=== PATIENT | female | born 1965 | race Caucasian/White ===

== ENCOUNTER 2016-09-26 13:10 | Emergency (ER) | payer MEDICAID ==
[~2016-09-26] VITALS: Ht 175.3 cm; Wt 69.4 kg
[~2016-09-26 13:10] MED LIST: NONE PER PT
[2016-09-26 13:11] VITALS: BP 142/98
== END 2016-09-26 15:10 | disposition left against medical advice (07) ==
LOC: ED 14:20
DX: R10.2 Pelvic and perineal pain (principal)

== ENCOUNTER 2017-04-29 09:46 | Inpatient (IN) | payer MEDICAID ==
[~2017-04-29] VITALS: Ht 175.3 cm; Wt 68.6 kg
[2017-04-29 10:43] LABS: MEAN CORPUSCULAR HEMOGLOBIN 23.8 pg (27.0-34.8); MEAN CORPUSCULAR HGB CONC 31.6 g/dL (32.4-35.8); MEAN CORPUSCULAR VOLUME 75.6 fL (80-100); MEAN PLATELET VOLUME 8.7 fL (7.4-10.4); PLATELET COUNT 432 x10^3/uL (130-400); RED BLOOD COUNT 4.48 x10^6/uL (3.82-5.3); RED CELL DISTRIBUTION WIDTH 22.4 % (9.6-15.2)
[2017-04-29 10:52] LABS: ALBUMIN 3.1 g/dL (3.4-5.0); ANION GAP 5 mmol/L (5-15); CHLORIDE 108 mmol/L (98-107)
[2017-04-29 10:54] LABS: CALCIUM 8.2 mg/dL (8.5-10.1); CREATININE 0.85 mg/dL (0.55-1.02)
[2017-04-29 11:00] LABS: BASOPHILS # (AUTO) 0.11 x10^3/uL (0-0.1); BASOPHILS % (AUTO) 1 % (0-1); EOSINOPHILS # (AUTO) 0.18 x10^3/uL (0-0.4); EOSINOPHILS % (AUTO) 1 % (1-7); LYMPHOCYTES # (AUTO) 2.06 x10^3/uL (1-3.4); LYMPHOCYTES % (AUTO) 16 % (22-44); MD SCAN; MONOCYTES # (AUTO) 0.97 x10^3/uL (0.2-0.8); MONOCYTES % (AUTO) 8 % (2-9); NEUTROPHILS # (AUTO) 9.64 x10^3/uL (1.8-6.8); NEUTROPHILS % (AUTO) 74 % (42-75)
[2017-04-29] MEDS ORDERED: DILTIAZEM 125 MG in SODIUM CHLORIDE 0.9% 100 ML IV SCH ×2 (11:47→22:00)
[2017-04-29] MEDS ORDERED: DILTIAZEM 5 MG/ML, 5ML ONE (11:51)
[2017-04-29] MEDS ORDERED: SODIUM CHLORIDE 0.9%, 500ML IVBOLUS ONE (12:00)
[2017-04-29] MEDS ORDERED: DILTIAZEM 5 MG/ML, 5ML IVPush ONE (12:00)
[2017-04-29] MEDS ORDERED: ENOXAPARIN 80 MG/0.8 ML SQ ONE (13:00)
[2017-04-29] MEDS ORDERED: CEFTRIAXONE PMX 1GM/50ML 50 ML IVPB ONE (13:00)
[2017-04-29] MEDS ORDERED: CEFTRIAXONE PMX 1GM/50ML 50 ML ONE (13:21)
[2017-04-29] MEDS ORDERED: ENOXAPARIN 80 MG/0.8 ML ONE (13:22)
[2017-04-29 14:04] VITALS: BP 149/96
[2017-04-29] MEDS ORDERED: FLU VACC QS2017-18 (36MOS+) UP/PF 0.5 ML IM-VACC ONE (15:00)
[2017-04-29] MEDS ORDERED: ACETAMINOPHEN 325 MG TABLET PO PRN (15:00)
[2017-04-29] MEDS ORDERED: FUROSEMIDE 20 MG/2 ML IV ONE (15:00)
[2017-04-29 16:08] LABS: AMPHETAMINE SCREEN, URINE Negative (Negative); BARBITURATE SCREEN, URINE Negative (Negative); BENZODIAZEPINE SCREEN, URINE Negative (Negative); CANNABINOID SCREEN, URINE Negative (Negative); COCAINE SCREEN, URINE Negative (Negative); METHADONE SCREEN, URINE Negative (Negative); OPIATE SCREEN, URINE Negative (Negative)
[2017-04-29 16:10] LABS: MICROSCOPIC AUTO
[2017-04-29 16:23] LABS: CULTURE INDICATED? YES
[2017-04-29] MEDS: GUAIFENESIN/DM 200-20MG, 10ML UDC PO PRN (18:37)
[2017-04-29 19:10] VITALS: BP 138/92
[2017-04-29] MEDS: DIPHENHYDRAMINE 25 MG CAPSULE PO PRN (20:09)
[2017-04-29 21:09] LABS: TROPONIN I < 0.015 ng/mL (0.000-0.045)
[2017-04-30] MEDS: GUAIFENESIN/DM 200-20MG, 10ML UDC PO PRN (00:57)
[2017-04-30 01:31] VITALS: BP 155/95
[2017-04-30 02:58] LABS: TROPONIN I < 0.015 ng/mL (0.000-0.045)
[2017-04-30] MEDS ORDERED: ASPIRIN 325 MG TABLET EC PO SCH (06:00)
[2017-04-30 06:57] VITALS: BP 131/78
[2017-04-30] MEDS: CEFTRIAXONE PMX 2GM/50ML 50 ML IV SCH (12:54)
[2017-04-30 13:26] VITALS: BP 118/59
[2017-04-30] MEDS ORDERED: DIGOXIN 0.25 MG/ML, 2ML IVPush ONE (18:30)
[2017-04-30 19:06] VITALS: BP 148/94
[2017-04-30] MEDS ORDERED: BENZONATATE 100 MG CAPSULE ONE (19:59)
[2017-04-30] MEDS: FUROSEMIDE 40 MG/4 ML IV SCH (20:02)
[2017-04-30] MEDS: DIPHENHYDRAMINE 25 MG CAPSULE PO PRN (20:02)
[2017-04-30] MEDS: BENZONATATE 100 MG CAPSULE PO SCH (20:02)
[2017-04-30] MEDS ORDERED: DILTIAZEM 125 MG in SODIUM CHLORIDE 0.9% 100 ML IV SCH (22:00)
[2017-05-01] MEDS: DIGOXIN 0.25 MG/ML, 2ML IVPush SCH ×2 (00:12→06:00)
[2017-05-01 00:14] VITALS: BP 147/89
[2017-05-01] MEDS: FUROSEMIDE 40 MG/4 ML IV SCH ×3 (05:00→22:25)
[2017-05-01] MEDS ORDERED: CARVEDILOL 3.125 MG TABLET PO SCH (06:00)
[2017-05-01 07:20] VITALS: BP 100/63
[2017-05-01 08:03] LABS: ANION GAP 9 mmol/L (5-15); CALCIUM 8.6 mg/dL (8.5-10.1); CHLORIDE 99 mmol/L (98-107); CREATININE 1.03 mg/dL (0.55-1.02)
[2017-05-01] MEDS ORDERED: MAGNESIUM SULFATE PMX 2GM/50ML 50 ML IV ONE (09:00)
[2017-05-01] MEDS: LISINOPRIL 5 MG TABLET PO SCH (09:33)
[2017-05-01] MEDS: SPIRONOLACTONE 25 MG TABLET PO SCH (09:33)
[2017-05-01] MEDS: BENZONATATE 100 MG CAPSULE PO SCH ×3 (09:34→22:25)
[2017-05-01 09:46] LABS: % IRON SATURATION 6 % (20-55); IRON LEVEL 32 mcg/dL (50-170); TOTAL IRON BINDING CAPACITY 508 mcg/dL (250-450)
[2017-05-01] MEDS ORDERED: LIDOCAINE 2%, 20ML ONE (11:34)
[2017-05-01] MEDS ORDERED: MIDAZOLAM 1 MG/ML, 2ML ONE (11:34)
[2017-05-01] MEDS ORDERED: FENTANYL PF 100 MCG/2ML ONE (11:34)
[2017-05-01] MEDS: CEFTRIAXONE PMX 2GM/50ML 50 ML IV SCH (13:09)
[2017-05-01 13:50] VITALS: BP 100/63
[2017-05-01] MEDS: CARVEDILOL 6.25 MG TABLET PO SCH (16:51)
[2017-05-01 18:35] VITALS: BP 104/67
[2017-05-02 01:54] VITALS: BP 109/67
[2017-05-02] MEDS: GUAIFENESIN/DM 200-20MG, 10ML UDC PO PRN (05:32)
[2017-05-02] MEDS: CARVEDILOL 6.25 MG TABLET PO SCH (05:32)
[2017-05-02 05:41] LABS: MEAN CORPUSCULAR HEMOGLOBIN 23.1 pg (27.0-34.8); MEAN CORPUSCULAR HGB CONC 31.2 g/dL (32.4-35.8); MEAN CORPUSCULAR VOLUME 74.1 fL (80-100); MEAN PLATELET VOLUME 8.9 fL (7.4-10.4); PLATELET COUNT 393 x10^3/uL (130-400); RED BLOOD COUNT 5.31 x10^6/uL (3.82-5.3)
[2017-05-02 05:47] LABS: ANION GAP 10 mmol/L (5-15); CALCIUM 8.5 mg/dL (8.5-10.1); CHLORIDE 96 mmol/L (98-107); CREATININE 1.16 mg/dL (0.55-1.02)
[2017-05-02] MEDS ORDERED: ASPIRIN 81 MG TABLET EC PO SCH (06:00)
[2017-05-02 06:21] LABS: BASOPHILS # (AUTO) 0.24 x10^3/uL (0-0.1); BASOPHILS % (AUTO) 2 % (0-1); EOSINOPHILS % (AUTO) 1 % (1-7); LYMPHOCYTES # (AUTO) 1.68 x10^3/uL (1-3.4); LYMPHOCYTES % (AUTO) 12 % (22-44); MD SCAN; MONOCYTES # (AUTO) 1.64 x10^3/uL (0.2-0.8); MONOCYTES % (AUTO) 12 % (2-9); NEUTROPHILS # (AUTO) 10.56 x10^3/uL (1.8-6.8); NEUTROPHILS % (AUTO) 74 % (42-75)
[2017-05-02 07:40] VITALS: BP 101/60
[2017-05-02] MEDS: FUROSEMIDE 40 MG/4 ML IV SCH (07:56)
[2017-05-02] MEDS: SPIRONOLACTONE 25 MG TABLET PO SCH (07:57)
[2017-05-02] MEDS: LISINOPRIL 5 MG TABLET PO SCH (07:57)
[2017-05-02] MEDS: BENZONATATE 100 MG CAPSULE PO SCH (07:57)
[2017-05-02] MEDS ORDERED: DIGOXIN 0.25 MG TABLET PO SCH (09:00)
[2017-05-02] MEDS ORDERED: POTASSIUM CHLORIDE 10 MEQ TABLET.ER ONE (09:11)
[2017-05-02] MEDS ORDERED: POTASSIUM CHLORIDE 10 MEQ TABLET.ER PO SCH (09:30)
[2017-05-02] MEDS ORDERED: IRON SUCROSE COMPLEX 100MG/5ML IV ONE (10:30)
[2017-05-02] MEDS ORDERED: MULTIVITAMINS WITH IRON TABLET PO SCH (10:30)
[2017-05-02] MEDS ORDERED: LISI5TAB7 PO (12:31)
[2017-05-02] MEDS ORDERED: POTA10TA5 PO (12:31)
[2017-05-02] MEDS ORDERED: CARV6.2512 PO (12:31)
[2017-05-02] MEDS ORDERED: SPIR25TA PO (12:31)
[2017-05-02] MEDS ORDERED: ASPI-621 PO (12:31)
[2017-05-02] MEDS ORDERED: FURO40TA6 PO (12:31)
[2017-05-02] MEDS: CEFTRIAXONE PMX 2GM/50ML 50 ML IV SCH (13:00)
[2017-05-02] MEDS ORDERED: PNEUMOCOCCAL 23 VACCINE IM-VACC ONE (13:30)
[2017-05-03] MEDS ORDERED: FUROSEMIDE 40 MG TABLET PO SCH (09:00)
== END 2017-05-02 14:14 | disposition home or self-care (01) | DRG 286 ==
LOC: ED 12:40 → EDIP 12:41 → 5SO 13:51 → DCLOUNGE 05-02 14:06
PROVIDERS: ADMIT Hospitalist; ATTEND Hospitalist
PROC: 4A023N8 Measurement of Cardiac Sampling and Pressure, Bilateral, Percutaneous Approach (ICD-10-PCS; principal; 2017-05-01)
PROC: B2111ZZ Fluoroscopy of Multiple Coronary Arteries using Low Osmolar Contrast (ICD-10-PCS; 2017-05-01)
PROC: B2151ZZ Fluoroscopy of Left Heart using Low Osmolar Contrast (ICD-10-PCS; 2017-05-01)
DX: I48.91 Unspecified atrial fibrillation (principal); I50.21 Acute systolic (congestive) heart failure; D68.59 Other primary thrombophilia; I42.9 Cardiomyopathy, unspecified; I08.1 Rheumatic disorders of both mitral and tricuspid valves; J32.0 Chronic maxillary sinusitis; N39.0 Urinary tract infection, site not specified; D64.9 Anemia, unspecified; F15.90 Other stimulant use, unspecified, uncomplicated; I25.2 Old myocardial infarction; Z87.891 Personal history of nicotine dependence; Z23 Encounter for immunization
CPT/HCPCS: 36415; 70450; 71046; 80048; 80307; 81001; 82040; 83540; 83550; 83605; 83735; 83880; 84145; 84443; 84484; 85025; 87040; 87086; 90686; 90732; 93005; 93306; 93460; 96361; 96365; 96372; 96375; 99156; C1760; C1769; C1894; J0696; J1650; J1756; J1940; J2250; J3010; J3490; J1160; J3475; J7040; Q0163; Q9967

== ENCOUNTER 2017-07-16 21:17 | Emergency (ER) | payer MEDICAID ==
[~2017-07-16] VITALS: Ht 175.3 cm; Wt 68.5 kg
[~2017-07-16 21:17] MED LIST changes: +ASPI-621 PO; +CARV6.2512 PO; +FURO40TA6 PO; +LISI5TAB7 PO; +POTA10TA5 PO; +SPIR25TA PO
[2017-07-16] MEDS ORDERED: SODIUM CHLORIDE FLUSH 10ML SYR IVF ONE (22:30)
[2017-07-16] MEDS ORDERED: ASPIRIN 81 MG TABLET CHEW PO ONE (22:30)
[2017-07-16] MEDS ORDERED: NITROGLYCERIN SINGLE TAB 0.4 MG SL PRN (22:30)
[2017-07-16 22:34] LABS: BASOPHILS # (AUTO) 0.08 x10^3/uL (0-0.1); BASOPHILS % (AUTO) 1 % (0-1); EOSINOPHILS # (AUTO) 0.19 x10^3/uL (0-0.4); EOSINOPHILS % (AUTO) 2 % (1-7); LYMPHOCYTES % (AUTO) 19 % (22-44); MD NO; MEAN CORPUSCULAR HEMOGLOBIN 24.3 pg (27.0-34.8); MEAN CORPUSCULAR HGB CONC 32.2 g/dL (32.4-35.8); MEAN CORPUSCULAR VOLUME 75.4 fL (80-100); MEAN PLATELET VOLUME 7.6 fL (7.4-10.4); MONOCYTES # (AUTO) 0.54 x10^3/uL (0.2-0.8); MONOCYTES % (AUTO) 7 % (2-9); NEUTROPHILS # (AUTO) 5.65 x10^3/uL (1.8-6.8); NEUTROPHILS % (AUTO) 71 % (42-75); PLATELET COUNT 420 x10^3/uL (130-400); RED BLOOD COUNT 4.08 x10^6/uL (3.82-5.3); RED CELL DISTRIBUTION WIDTH 21.5 % (9.6-15.2)
[2017-07-16 22:47] LABS: ALBUMIN 3.4 g/dL (3.4-5.0); ANION GAP 11 mmol/L (5-15); CALCIUM 8.3 mg/dL (8.5-10.1); CHLORIDE 101 mmol/L (98-107); CREATININE 1.57 mg/dL (0.55-1.02)
[2017-07-16 22:51] LABS: TROPONIN I < 0.015 ng/mL (0.000-0.045)
[2017-07-16] MEDS ORDERED: ASPIRIN 81 MG TABLET CHEW ONE (23:34)
[2017-07-17 00:32] VITALS: BP 133/59
== END 2017-07-17 00:34 | disposition home or self-care (01) ==
LOC: ED 23:59
DX: R07.2 Precordial pain (principal); R25.2 Cramp and spasm
CPT/HCPCS: 36415; 71045; 80048; 82040; 84484; 85025; 93005; 99285

== ENCOUNTER 2018-02-12 23:02 | Emergency (ER) | payer MEDICAID ==
[~2018-02-12] VITALS: Ht 175.3 cm; Wt 72.5 kg
[2018-02-12 23:46] LABS: BASOPHILS # (AUTO) 0.07 x10^3/uL (0-0.1); BASOPHILS % (AUTO) 1 % (0-1); EOSINOPHILS # (AUTO) 0.17 x10^3/uL (0-0.4); EOSINOPHILS % (AUTO) 2 % (1-7); LYMPHOCYTES # (AUTO) 1.23 x10^3/uL (1-3.4); LYMPHOCYTES % (AUTO) 13 % (22-44); MD NO; MEAN CORPUSCULAR HEMOGLOBIN 25.5 pg (27.0-34.8); MEAN CORPUSCULAR HGB CONC 32.2 g/dL (32.4-35.8); MEAN CORPUSCULAR VOLUME 79.1 fL (80-100); MEAN PLATELET VOLUME 8.7 fL (7.4-10.4); MONOCYTES # (AUTO) 0.89 x10^3/uL (0.2-0.8); MONOCYTES % (AUTO) 9 % (2-9); NEUTROPHILS # (AUTO) 7.33 x10^3/uL (1.8-6.8); NEUTROPHILS % (AUTO) 76 % (42-75); PLATELET COUNT 274 x10^3/uL (130-400); RED BLOOD COUNT 3.98 x10^6/uL (3.82-5.3); RED CELL DISTRIBUTION WIDTH 19.6 % (9.6-15.2)
[2018-02-12 23:51] LABS: ALBUMIN 3.7 g/dL (3.4-5.0); ANION GAP 10 mmol/L (5-15); CALCIUM 8.4 mg/dL (8.5-10.1); CHLORIDE 109 mmol/L (98-107); CREATININE 0.96 mg/dL (0.55-1.02)
[2018-02-12 23:54] LABS: TROPONIN I < 0.015 ng/mL (0.000-0.045)
[2018-02-13 00:19] VITALS: BP 123/67
== END 2018-02-13 00:34 | disposition home or self-care (01) ==
LOC: ED 23:44
DX: R07.89 Other chest pain (principal); F15.10 Other stimulant abuse, uncomplicated; F17.200 Nicotine dependence, unspecified, uncomplicated; I48.91 Unspecified atrial fibrillation; I50.9 Heart failure, unspecified
CPT/HCPCS: 36415; 71045; 80048; 82040; 84484; 85025; 93005; 99285

== ENCOUNTER → 2018-08-18 | Outpatient (CLI) | payer MEDICAID ==
[~2018-08-18] MED LIST changes: -ASPI-621 PO; +ASPI81TA45 PO
== END | disposition home or self-care (01) ==
LOC: CVU 15:21
PROVIDERS: ATTEND Nurse Practitioner Family
DX: I08.1 Rheumatic disorders of both mitral and tricuspid valves (principal); I42.9 Cardiomyopathy, unspecified; F10.10 Alcohol abuse, uncomplicated
CPT/HCPCS: 93306

== ENCOUNTER 2018-11-24 11:56 | Emergency (ER) | payer MEDICAID ==
[~2018-11-24] VITALS: Ht 175.3 cm; Wt 76.0 kg
[2018-11-24 15:16] VITALS: BP 146/77
== END 2018-11-24 15:36 | disposition home or self-care (01) ==
LOC: ED 15:03
DX: S06.0X1A Concussion with loss of consciousness of 30 minutes or less, initial encounter (principal); I48.91 Unspecified atrial fibrillation; N92.4 Excessive bleeding in the premenopausal period; Y04.8XXA Assault by other bodily force, initial encounter; Y93.89 Activity, other specified; Y92.410 Unspecified street and highway as the place of occurrence of the external cause; Y99.8 Other external cause status
CPT/HCPCS: 36415; 70450; 70486; 72125; 76830; 80053; 81001; 84703; 85025; 85610; 85730; 99284

== ENCOUNTER 2019-04-20 15:34 | Emergency (ER) | payer MEDICAID ==
[~2019-04-20] VITALS: Ht 175.3 cm; Wt 75.0 kg
[2019-04-20 15:37] VITALS: BP 137/65
== END 2019-04-20 16:29 | disposition home or self-care (01) ==
LOC: ED 16:20
DX: K62.5 Hemorrhage of anus and rectum (principal); K60.0 Acute anal fissure; I25.2 Old myocardial infarction; I48.91 Unspecified atrial fibrillation; I50.9 Heart failure, unspecified
CPT/HCPCS: 99283

== ENCOUNTER 2019-06-26 04:05 | Emergency (ER) | payer MEDICAID ==
[~2019-06-26] VITALS: Ht 175.3 cm; Wt 73.0 kg
[2019-06-26] MEDS ORDERED: POTA99TA24 PO (04:29)
--- NOTE | 2019-06-26 04:29 | NUR ---
pt resting on gurney, monitors applied, siderail sup x2, call light within reach. awaiting lab and xray results
[2019-06-26 05:12] LABS: BASOPHILS # (AUTO) 0.05 x10^3/uL (0-0.1); BASOPHILS % (AUTO) 0 % (0-1); EOSINOPHILS # (AUTO) 0.18 x10^3/uL (0-0.4); EOSINOPHILS % (AUTO) 1 % (1-7); LYMPHOCYTES # (AUTO) 1.02 x10^3/uL (1-3.4); LYMPHOCYTES % (AUTO) 6 % (22-44); MD NO; MEAN CORPUSCULAR HEMOGLOBIN 25.5 pg (27.0-34.8); MEAN CORPUSCULAR HGB CONC 31.7 g/dL (32.4-35.8); MEAN CORPUSCULAR VOLUME 80.5 fL (80-100); MEAN PLATELET VOLUME 8.1 fL (7.4-10.4); MONOCYTES # (AUTO) 0.62 x10^3/uL (0.2-0.8); MONOCYTES % (AUTO) 4 % (2-9); NEUTROPHILS # (AUTO) 15.11 x10^3/uL (1.8-6.8); NEUTROPHILS % (AUTO) 89 % (42-75); PLATELET COUNT 388 x10^3/uL (130-400); RED BLOOD COUNT 4.48 x10^6/uL (3.82-5.3); RED CELL DISTRIBUTION WIDTH 21.1 % (9.6-15.2)
[2019-06-26 05:17] LABS: ALANINE AMINOTRANSFERASE 20 U/L (12-78); ALBUMIN 3.1 g/dL (3.4-5.0); ANION GAP 10 mmol/L (5-15); CALCIUM 8.3 mg/dL (8.5-10.1); CHLORIDE 108 mmol/L (98-107); CREATININE 1.06 mg/dL (0.55-1.02)
--- NOTE | 2019-06-26 05:20 | NUR ---
PT UP TO RR WITH STEADY GAIT
[2019-06-26 05:21] LABS: ALKALINE PHOSPHATASE 115 U/L (45-117); BILIRUBIN,TOTAL 0.4 mg/dL (0.2-1.0); TOTAL PROTEIN 7.7 g/dL (6.4-8.2); TROPONIN I < 0.015 ng/mL (0.000-0.045)
[2019-06-26] MEDS ORDERED: SODIUM CHLORIDE FLUSH 10ML SYR IVF ONE (06:00)
--- NOTE | 2019-06-26 06:21 | NUR ---
pt to ct
--- NOTE | 2019-06-26 06:41 | NUR ---
PT RESTING ON GURNEY, MONITORS REAPPLIED, CALL LIGHT WITHIN REACH. AWAITING CTA RESULT
[2019-06-26] MEDS ORDERED: ACETAMINOPHEN 500 MG TABLET ONE (06:54)
--- NOTE | 2019-06-26 06:56 | NUR ---
pt medicated per mar
[2019-06-26] MEDS ORDERED: OMNIPAQUE 350 MG/ML, 100ML BOTTLE ONE (07:00)
[2019-06-26] MEDS ORDERED: ACETAMINOPHEN 500 MG TABLET PO ONE (07:00)
--- NOTE | 2019-06-26 07:00 | NUR ---
RECEIVED REPORT FROM TIMOTHY LEE. PT IN BED RESTING, NO SIGNS OF DISTRESS.
[2019-06-26 07:34] LABS: TROPONIN I < 0.015 ng/mL (0.000-0.045)
[2019-06-26 07:54] VITALS: BP 114/89
--- NOTE | 2019-06-26 07:55 | NUR ---
PT IN BED, NO SIGNS OF DISTRESS, RESPIRATIONS EVEN AND UNLABORED, CALL LIGHT WITHIN REACH.
== END 2019-06-26 08:13 | disposition home or self-care (01) ==
LOC: ED 07:21
DX: R07.89 Other chest pain (principal); F10.10 Alcohol abuse, uncomplicated; Y90.0 Blood alcohol level of less than 20 mg/100 ml; F15.10 Other stimulant abuse, uncomplicated; I50.9 Heart failure, unspecified; I48.91 Unspecified atrial fibrillation; I25.2 Old myocardial infarction
CPT/HCPCS: 36415; 71045; 71275; 80053; 83880; 84484; 85025; 93005; 99285; Q9967

== ENCOUNTER 2019-06-29 16:20 | Inpatient (IN) | payer MEDICAID ==
[~2019-06-29] VITALS: Ht 175.3 cm; Wt 82.4 kg
[~2019-06-29 16:20] MED LIST changes: +POTA99TA24 PO
[2019-06-29] MEDS ORDERED: SODIUM CHLORIDE FLUSH 10ML SYR IVF ONE (17:00)
[2019-06-29] MEDS ORDERED: ACETAMINOPHEN 500 MG TABLET PO ONE (17:00)
[2019-06-29] MEDS ORDERED: SODIUM CHLORIDE 0.9% 1,000ML IVBOLUS ONE (17:00)
[2019-06-29 17:22] LABS: ALANINE AMINOTRANSFERASE 32 U/L (12-78); ALBUMIN 2.2 g/dL (3.4-5.0); ANION GAP 14 mmol/L (5-15); CALCIUM 7.7 mg/dL (8.5-10.1); CHLORIDE 97 mmol/L (98-107); CREATININE 2.02 mg/dL (0.55-1.02)
[2019-06-29 17:25] LABS: ALKALINE PHOSPHATASE 78 U/L (45-117); BILIRUBIN,TOTAL 0.2 mg/dL (0.2-1.0)
[2019-06-29] MEDS: NS + 40MEQ KCL 1,000 ML IV SCH ×2 (17:31→22:26)
[2019-06-29] MEDS ORDERED: AZITHROMYCIN 500 MG in SODIUM CHLORIDE 0.9% 250 ML IV ONE (17:32)
[2019-06-29] MEDS ORDERED: POTASSIUM CHLORIDE 20 MEQ TAB.ER.PRT ONE (17:43)
[2019-06-29] MEDS ORDERED: NS + 40MEQ KCL 1,000 ML IV ONE (17:43)
[2019-06-29] MEDS ORDERED: POTASSIUM CHLORIDE 20 MEQ TAB.ER.PRT PO ONE (18:00)
[2019-06-29 18:05] LABS: MEAN CORPUSCULAR HEMOGLOBIN 25.9 pg (27.0-34.8); MEAN CORPUSCULAR HGB CONC 33.2 g/dL (32.4-35.8); MEAN CORPUSCULAR VOLUME 77.9 fL (80-100); PLATELET COUNT 155 x10^3/uL (130-400); RED BLOOD COUNT 3.83 x10^6/uL (3.82-5.3); RED CELL DISTRIBUTION WIDTH 20.3 % (9.6-15.2)
[2019-06-29] MEDS ORDERED: POTA20TA14 PO (18:09)
[2019-06-29] MEDS ORDERED: LISI5TAB7 PO (18:09)
[2019-06-29] MEDS ORDERED: NALT50TA PO (18:09)
[2019-06-29] MEDS ORDERED: FERR324T5 PO (18:09)
[2019-06-29] MEDS ORDERED: SPIR25TA5 PO (18:09)
[2019-06-29 18:25] LABS: MD YES
[2019-06-29 18:40] LABS: BAND#(MANUAL) 0.95 x10^3/uL; BANDS%(MANUAL) 10 % (0-7); LYMPH#(MANUAL) 0.19 x10^3/uL (1-3.4); LYMPHS% (MANUAL) 2 % (22-44); MONOS#(MANUAL) 0.38 x10^3/uL (0.3-2.7); MONOS% (MANUAL) 4 % (2-9); SEG#(MANUAL) 7.98 x10^3/uL (1.8-6.8); SEGS% (MANUAL) 84 % (42-75)
[2019-06-29 18:42] LABS: <PLATELET ESTIMATE> ADEQUATE; <PLT MORPHOLOGY> NORMAL PLT MORPH; HYPOCHROMIA 1+; MICROCYTOSIS 1+
--- NOTE | 2019-06-29 19:09 | NUR ---
Assumed care of pt. Pt alert and resting on gurney. Awaiting admit.
[2019-06-29] MEDS ORDERED: ONDANSETRON ODT 4 MG PO PRN (19:30)
--- NOTE | 2019-06-29 19:38 | NUR ---
VSS. Pt on room air. Pt aware of need for urine sample. Pt reports pain to her left side/ribs and requested pain medicine. MD updated and order received.
[2019-06-29] MEDS ORDERED: CEFTRIAXONE PMX 1GM/50ML 50 ML ONE (19:54)
[2019-06-29] MEDS ORDERED: HYDROmorphone 2 MG/ML, 1ML ONE (19:55)
[2019-06-29] MEDS ORDERED: HYDROmorphone 2 MG/ML, 1ML IM PRN (20:00)
[2019-06-29] MEDS: CEFTRIAXONE PMX 1GM/50ML 50 ML IV SCH (20:02)
--- NOTE | 2019-06-29 20:15 | NUR ---
Rocephin started. Dilaudid given. Pt remains on full monitors with call light within reach.
--- NOTE | 2019-06-29 20:38 | NUR ---
Report given to TIMOTHY Jain
--- NOTE | 2019-06-29 20:56 | NUR ---
At time of admit, pt alert, oriented and in NAD.
[2019-06-29 21:41] VITALS: BP 127/80
[2019-06-29 21:51] LABS: ANION GAP 11 mmol/L (5-15); CALCIUM 7.8 mg/dL (8.5-10.1); CHLORIDE 102 mmol/L (98-107)
[2019-06-30 00:53] VITALS: BP 127/75
[2019-06-30] MEDS: ACETAMINOPHEN 325 MG TABLET PO PRN ×3 (02:52→17:54)
[2019-06-30 03:19] VITALS: BP 127/74
[2019-06-30 03:40] LABS: MICROSCOPIC AUTO
[2019-06-30 03:41] LABS: CULTURE INDICATED? YES
[2019-06-30] MEDS: NS + 40MEQ KCL 1,000 ML IV SCH (04:59)
[2019-06-30 06:10] LABS: MEAN CORPUSCULAR HEMOGLOBIN 25.6 pg (27.0-34.8); MEAN CORPUSCULAR VOLUME 80.1 fL (80-100); MEAN PLATELET VOLUME 9.9 fL (7.4-10.4); PLATELET COUNT 140 x10^3/uL (130-400); RED BLOOD COUNT 3.76 x10^6/uL (3.82-5.3); RED CELL DISTRIBUTION WIDTH 20.9 % (9.6-15.2)
[2019-06-30 06:17] LABS: ANION GAP 10 mmol/L (5-15); CALCIUM 7.8 mg/dL (8.5-10.1); CHLORIDE 105 mmol/L (98-107); CREATININE 1.69 mg/dL (0.55-1.02)
[2019-06-30 06:30] LABS: BASOPHILS % (AUTO) 0 % (0-1); EOSINOPHILS # (AUTO) 0.01 x10^3/uL (0-0.4); EOSINOPHILS % (AUTO) 0 % (1-7); LYMPHOCYTES % (AUTO) 6 % (22-44); MD SCAN; MONOCYTES # (AUTO) 0.46 x10^3/uL (0.2-0.8); MONOCYTES % (AUTO) 5 % (2-9); NEUTROPHILS # (AUTO) 8.15 x10^3/uL (1.8-6.8); NEUTROPHILS % (AUTO) 89 % (42-75)
[2019-06-30] MEDS ORDERED: VANCOMYCIN PER PHARMACY MC PRN (07:30)
[2019-06-30] MEDS: LISINOPRIL 5 MG TABLET PO SCH (07:53)
[2019-06-30] MEDS: SPIRONOLACTONE 25 MG TABLET PO SCH (07:53)
[2019-06-30] MEDS: CARVEDILOL 6.25 MG TABLET PO SCH ×2 (07:53→17:05)
[2019-06-30] MEDS: FERROUS SULFATE 325 MG TABLET PO SCH ×2 (07:53→17:05)
[2019-06-30] MEDS ORDERED: PHARMACOKINETIC MONITORING MC PRN (08:00)
[2019-06-30] MEDS ORDERED: VANCOMYCIN 1,700 MG in SODIUM CHLORIDE 0.9% 250 ML IV ONE (08:00)
[2019-06-30 08:11] VITALS: BP 134/55
[2019-06-30] MEDS: SENNA/DOCUSATE TABLET PO SCH (08:15)
[2019-06-30] MEDS ORDERED: FUROSEMIDE 40 MG TABLET PO SCH (09:00)
[2019-06-30] MEDS ORDERED: POTASSIUM CHLORIDE 20 MEQ TAB.ER.PRT PO SCH (09:00)
[2019-06-30] MEDS: ALBUTEROL HFA 90 MCG/SPRAY INH SCH ×3 (13:37→22:04)
[2019-06-30 15:03] VITALS: BP 126/53
[2019-06-30] MEDS ORDERED: AZITHROMYCIN 500 MG in SODIUM CHLORIDE 0.9% 250 ML IV SCH (18:00)
[2019-06-30] MEDS ORDERED: VANCOMYCIN 1,400 MG in SODIUM CHLORIDE 0.9% 250 ML IV SCH (20:00)
[2019-06-30] MEDS: CEFTRIAXONE PMX 1GM/50ML 50 ML IV SCH (20:14)
[2019-06-30 20:25] VITALS: BP 89/55
[2019-06-30 22:12] VITALS: BP 98/55
[2019-07-01] MEDS ORDERED: VANCOMYCIN 1,400 MG in SODIUM CHLORIDE 0.9% 250 ML IV SCH (02:00)
[2019-07-01] MEDS: ALBUTEROL HFA 90 MCG/SPRAY INH SCH ×6 (02:21→23:02)
[2019-07-01] MEDS: ACETAMINOPHEN 325 MG TABLET PO PRN ×4 (02:33→20:37)
[2019-07-01 02:35] VITALS: BP 95/58
[2019-07-01] MEDS: CARVEDILOL 6.25 MG TABLET PO SCH ×2 (06:38→17:14)
[2019-07-01 07:18] LABS: ANION GAP 10 mmol/L (5-15); CALCIUM 8.3 mg/dL (8.5-10.1); CHLORIDE 104 mmol/L (98-107); CREATININE 1.36 mg/dL (0.55-1.02)
[2019-07-01 08:00] VITALS: BP 93/56
[2019-07-01] MEDS: FERROUS SULFATE 325 MG TABLET PO SCH ×2 (08:04→17:00)
[2019-07-01] MEDS: SPIRONOLACTONE 25 MG TABLET PO SCH (08:18)
[2019-07-01] MEDS: LISINOPRIL 5 MG TABLET PO SCH (08:18)
[2019-07-01] MEDS: SENNA/DOCUSATE TABLET PO SCH (08:18)
[2019-07-01] MEDS ORDERED: POTASSIUM CHLORIDE 20 MEQ TAB.ER.PRT PO ONE (10:30)
[2019-07-01 13:59] VITALS: BP 106/63
[2019-07-01] MEDS ORDERED: GUAIFENESIN 200 MG TABLET PO PRN (14:30)
[2019-07-01 18:41] VITALS: BP 112/70
[2019-07-01] MEDS: CEFTRIAXONE PMX 2GM/50ML 50 ML IV SCH (20:37)
[2019-07-02 00:14] VITALS: BP 110/69
[2019-07-02] MEDS ORDERED: BENZONATATE 100 MG CAPSULE PO ONE (02:30)
[2019-07-02] MEDS: ALBUTEROL HFA 90 MCG/SPRAY INH SCH ×6 (03:14→23:48)
[2019-07-02 06:08] LABS: CHLORIDE 104 mmol/L (98-107)
[2019-07-02 06:16] LABS: ANION GAP 8 mmol/L (5-15); CALCIUM 8.7 mg/dL (8.5-10.1); CREATININE 1.04 mg/dL (0.55-1.02)
[2019-07-02] MEDS: CARVEDILOL 6.25 MG TABLET PO SCH ×2 (06:23→17:53)
[2019-07-02 06:35] VITALS: BP 129/78
[2019-07-02] MEDS: FERROUS SULFATE 325 MG TABLET PO SCH ×2 (08:42→17:00)
[2019-07-02] MEDS: SPIRONOLACTONE 25 MG TABLET PO SCH (08:42)
[2019-07-02] MEDS: LISINOPRIL 5 MG TABLET PO SCH (08:42)
[2019-07-02] MEDS: SENNA/DOCUSATE TABLET PO SCH (08:42)
[2019-07-02] MEDS: GUAIFENESIN 100 MG/5 ML, 5ML UDC PO PRN ×3 (11:47→23:46)
[2019-07-02] MEDS: HEPARIN 5,000 UNITS/ML, 1ML SQ SCH ×2 (11:48→23:47)
[2019-07-02 12:25] VITALS: BP 115/72
[2019-07-02 17:45] LABS: CLOSTRIDIUM DIFFICILE ANTIGEN NEGATIVE; CLOSTRIDIUM DIFFICILE TOXIN NEGATIVE (Negative)
[2019-07-02] MEDS: BENZONATATE 100 MG CAPSULE PO PRN (17:53)
[2019-07-02 18:36] VITALS: BP 130/74
[2019-07-02] MEDS: CEFTRIAXONE PMX 2GM/50ML 50 ML IV SCH (19:51)
[2019-07-02] MEDS: ACETAMINOPHEN 325 MG TABLET PO PRN (19:51)
[2019-07-03 00:44] VITALS: BP 114/70
[2019-07-03] MEDS: ALBUTEROL HFA 90 MCG/SPRAY INH SCH ×6 (03:04→22:36)
[2019-07-03] MEDS: BENZONATATE 100 MG CAPSULE PO PRN ×3 (03:22→17:03)
[2019-07-03 05:23] LABS: MEAN CORPUSCULAR HEMOGLOBIN 25.6 pg (27.0-34.8); MEAN CORPUSCULAR HGB CONC 31.8 g/dL (32.4-35.8); MEAN CORPUSCULAR VOLUME 80.4 fL (80-100); RED BLOOD COUNT 3.99 x10^6/uL (3.82-5.3); RED CELL DISTRIBUTION WIDTH 20.8 % (9.6-15.2)
[2019-07-03 05:25] LABS: CHLORIDE 103 mmol/L (98-107)
[2019-07-03 05:29] LABS: ANION GAP 8 mmol/L (5-15); CALCIUM 8.2 mg/dL (8.5-10.1); CREATININE 0.97 mg/dL (0.55-1.02)
[2019-07-03] MEDS: CARVEDILOL 6.25 MG TABLET PO SCH ×2 (05:47→17:47)
[2019-07-03] MEDS: GUAIFENESIN 100 MG/5 ML, 5ML UDC PO PRN (05:47)
[2019-07-03 06:08] LABS: MEAN PLATELET VOLUME 8.7 fL (7.4-10.4); PLATELET COUNT 355 x10^3/uL (130-400)
[2019-07-03 06:09] LABS: BASOPHILS # (AUTO) 0.07 x10^3/uL (0-0.1); BASOPHILS % (AUTO) 1 % (0-1); EOSINOPHILS % (AUTO) 1 % (1-7); LYMPHOCYTES # (AUTO) 0.93 x10^3/uL (1-3.4); LYMPHOCYTES % (AUTO) 7 % (22-44); MD SCAN; MONOCYTES # (AUTO) 1.41 x10^3/uL (0.2-0.8); MONOCYTES % (AUTO) 11 % (2-9); NEUTROPHILS # (AUTO) 10.31 x10^3/uL (1.8-6.8); NEUTROPHILS % (AUTO) 80 % (42-75)
[2019-07-03 07:23] VITALS: BP 121/71
[2019-07-03] MEDS: SENNA/DOCUSATE TABLET PO SCH (08:55)
[2019-07-03] MEDS: FERROUS SULFATE 325 MG TABLET PO SCH ×2 (08:55→17:00)
[2019-07-03] MEDS: SPIRONOLACTONE 25 MG TABLET PO SCH (08:55)
[2019-07-03] MEDS: LISINOPRIL 5 MG TABLET PO SCH (08:56)
[2019-07-03] MEDS: HEPARIN 5,000 UNITS/ML, 1ML SQ SCH ×2 (11:06→17:03)
[2019-07-03 15:05] VITALS: BP 145/84
[2019-07-03] MEDS ORDERED: LIDOCAINE-MPF 1%, 5ML ONE (15:35)
[2019-07-03] MEDS ORDERED: OMNIPAQUE 350 MG/ML, 75ML BOTTLE ONE (16:46)
[2019-07-03 17:29] LABS: SYN CELLS COUNTED 570
[2019-07-03 18:34] VITALS: BP 128/78
[2019-07-03] MEDS: CEFTRIAXONE PMX 2GM/50ML 50 ML IV SCH (19:35)
[2019-07-03] MEDS: GUAIFENESIN ER 600 MG TABLET PO SCH (20:07)
[2019-07-03] MEDS: THIAMINE 100MG TABLET PO SCH (20:07)
[2019-07-04 00:25] VITALS: BP 147/76
[2019-07-04] MEDS: HEPARIN 5,000 UNITS/ML, 1ML SQ SCH ×4 (00:43→23:26)
[2019-07-04] MEDS: ALBUTEROL HFA 90 MCG/SPRAY INH SCH ×6 (03:25→23:00)
[2019-07-04 05:25] LABS: BASOPHILS # (AUTO) 0.09 x10^3/uL (0-0.1); BASOPHILS % (AUTO) 1 % (0-1); EOSINOPHILS # (AUTO) 0.14 x10^3/uL (0-0.4); EOSINOPHILS % (AUTO) 1 % (1-7); LYMPHOCYTES # (AUTO) 0.96 x10^3/uL (1-3.4); LYMPHOCYTES % (AUTO) 10 % (22-44); MD NO; MEAN CORPUSCULAR HEMOGLOBIN 25.2 pg (27.0-34.8); MEAN CORPUSCULAR HGB CONC 32.1 g/dL (32.4-35.8); MEAN CORPUSCULAR VOLUME 78.7 fL (80-100); MEAN PLATELET VOLUME 8.5 fL (7.4-10.4); MONOCYTES # (AUTO) 1.03 x10^3/uL (0.2-0.8); MONOCYTES % (AUTO) 10 % (2-9); NEUTROPHILS # (AUTO) 7.62 x10^3/uL (1.8-6.8); NEUTROPHILS % (AUTO) 77 % (42-75); PLATELET COUNT 380 x10^3/uL (130-400); RED BLOOD COUNT 3.78 x10^6/uL (3.82-5.3); RED CELL DISTRIBUTION WIDTH 20.4 % (9.6-15.2)
[2019-07-04 05:31] LABS: ANION GAP 9 mmol/L (5-15); CALCIUM 8.1 mg/dL (8.5-10.1); CHLORIDE 102 mmol/L (98-107); CREATININE 0.96 mg/dL (0.55-1.02)
[2019-07-04] MEDS: CARVEDILOL 6.25 MG TABLET PO SCH ×2 (06:02→17:24)
[2019-07-04 07:11] VITALS: BP 118/74
[2019-07-04] MEDS: BENZONATATE 100 MG CAPSULE PO PRN ×2 (08:54→17:24)
[2019-07-04] MEDS: SPIRONOLACTONE 25 MG TABLET PO SCH (08:54)
[2019-07-04] MEDS: GUAIFENESIN ER 600 MG TABLET PO SCH (08:54)
[2019-07-04] MEDS: SENNA/DOCUSATE TABLET PO SCH (08:54)
[2019-07-04] MEDS: LISINOPRIL 5 MG TABLET PO SCH (08:54)
[2019-07-04] MEDS: FERROUS SULFATE 325 MG TABLET PO SCH ×2 (08:55→16:48)
[2019-07-04] MEDS: THIAMINE 100MG TABLET PO SCH ×2 (08:58→20:03)
[2019-07-04] MEDS ORDERED: LIDOCAINE 1%, 10ML ONE (11:41)
[2019-07-04 12:41] VITALS: BP 112/72
[2019-07-04] MEDS ORDERED: TRAZODONE 50MG TABLET PO ONE (13:00)
[2019-07-04 18:23] VITALS: BP 99/64
[2019-07-04] MEDS: CEFTRIAXONE PMX 2GM/50ML 50 ML IV SCH (20:05)
[2019-07-04] MEDS: TRAZODONE 50MG TABLET PO PRN (21:28)
[2019-07-04] MEDS: GUAIFENESIN 100 MG/5 ML, 5ML UDC PO PRN (21:29)
[2019-07-05 02:20] LABS: HCG UR SG 1.009 (1.003-1.030)
[2019-07-05 02:25] VITALS: BP 112/68
[2019-07-05] MEDS: ALBUTEROL HFA 90 MCG/SPRAY INH SCH ×5 (02:33→20:27)
[2019-07-05 05:30] LABS: MEAN CORPUSCULAR HEMOGLOBIN 25.5 pg (27.0-34.8); MEAN CORPUSCULAR HGB CONC 32.5 g/dL (32.4-35.8); MEAN CORPUSCULAR VOLUME 78.4 fL (80-100); MEAN PLATELET VOLUME 7.8 fL (7.4-10.4); PLATELET COUNT 426 x10^3/uL (130-400); RED CELL DISTRIBUTION WIDTH 20.8 % (9.6-15.2)
[2019-07-05 05:36] LABS: ANION GAP 5 mmol/L (5-15); CALCIUM 7.9 mg/dL (8.5-10.1); CHLORIDE 101 mmol/L (98-107)
[2019-07-05] MEDS: CARVEDILOL 6.25 MG TABLET PO SCH ×2 (05:36→17:58)
[2019-07-05 05:38] LABS: CREATININE 0.86 mg/dL (0.55-1.02)
[2019-07-05 06:27] LABS: BASOPHILS # (AUTO) 0.05 x10^3/uL (0-0.1); BASOPHILS % (AUTO) 1 % (0-1); EOSINOPHILS # (AUTO) 0.17 x10^3/uL (0-0.4); EOSINOPHILS % (AUTO) 2 % (1-7); LYMPHOCYTES # (AUTO) 0.98 x10^3/uL (1-3.4); LYMPHOCYTES % (AUTO) 11 % (22-44); MD SCAN; MONOCYTES # (AUTO) 1.53 x10^3/uL (0.2-0.8); MONOCYTES % (AUTO) 17 % (2-9); NEUTROPHILS # (AUTO) 6.26 x10^3/uL (1.8-6.8); NEUTROPHILS % (AUTO) 70 % (42-75)
[2019-07-05 07:14] VITALS: BP 101/66
[2019-07-05] MEDS ORDERED: BUPIVACAINE/PF-EPI 0.5% 1:200K ONE (07:25)
[2019-07-05] MEDS ORDERED: FENTANYL PF 250 MCG/5ML ONE (07:47)
[2019-07-05] MEDS ORDERED: MIDAZOLAM 1 MG/ML, 2ML ONE (07:47)
[2019-07-05] MEDS: FERROUS SULFATE 325 MG TABLET PO SCH ×2 (08:00→17:23)
[2019-07-05] MEDS ORDERED: EPHEDRINE 50 MG/ML, 1ML ONE (08:13)
[2019-07-05] MEDS ORDERED: ONDANSETRON 2MG/ML, 2ML ONE (08:19)
[2019-07-05] MEDS ORDERED: NEOSTIGMINE 1 MG/ML, 10ML ONE (08:19)
[2019-07-05] MEDS ORDERED: KETOROLAC 30 MG/1 ML ONE (08:19)
[2019-07-05] MEDS ORDERED: ROCURONIUM 10MG/ML,5ML ONE (08:19)
[2019-07-05] MEDS ORDERED: GLYCOPYRROLATE 0.2MG/1ML, 5ML ONE (08:19)
[2019-07-05] MEDS ORDERED: SUCCINYLCHOLINE 20 MG/ML, 10ML ONE (08:19)
[2019-07-05] MEDS ORDERED: LIDOCAINE-MPF 2% ,5ML ONE (08:19)
[2019-07-05] MEDS ORDERED: DEXAMETHASONE 4 MG/ML, 1ML ONE (08:19)
[2019-07-05] MEDS ORDERED: PROPOFOL 10 MG/ML, 20ML ONE (08:19)
[2019-07-05] MEDS ORDERED: BUPIVACAINE/PF-EPI 0.5% 1:200K INFIL ONE (08:28)
[2019-07-05] MEDS ORDERED: MEPERIDINE/PF 25MG/ML,1ML IVPush PRN (08:30)
[2019-07-05] MEDS ORDERED: OXYcodone 5 MG/5 ML ORAL.SOL UDC PO PRN (08:30)
[2019-07-05] MEDS ORDERED: ONDANSETRON 2MG/ML, 2ML IV PRN (08:30)
[2019-07-05] MEDS ORDERED: EPHEDRINE 50 MG/ML, 1ML IVPush PRN (08:30)
[2019-07-05] MEDS ORDERED: HYDROmorphone 2 MG/ML, 1ML IVPush PRN (08:30)
[2019-07-05] MEDS ORDERED: ACETAMINOPHEN 325 MG TABLET PO PRN (08:30)
[2019-07-05] MEDS ORDERED: PROMETHAZINE 25 MG/ML, 1ML IV PRN (08:30)
[2019-07-05] MEDS ORDERED: hydrALAzine 20 MG/ML, 1ML IV PRN (08:30)
[2019-07-05] MEDS ORDERED: LABETALOL 5MG/ML, 20ML IV PRN (08:30)
[2019-07-05] MEDS ORDERED: OXYcodone 5 MG/5 ML ORAL.SOL UDC ONE (08:57)
[2019-07-05] MEDS ORDERED: FENTANYL PF 100 MCG/2ML ONE (08:57)
[2019-07-05] MEDS ORDERED: HYDROmorphone 1 MG/ML, 1ML INJ ONE (08:57)
[2019-07-05] MEDS: THIAMINE 100MG TABLET PO SCH ×2 (09:00→20:28)
[2019-07-05] MEDS: SENNA/DOCUSATE TABLET PO SCH (09:00)
[2019-07-05] MEDS: HEPARIN 5,000 UNITS/ML, 1ML SQ SCH ×2 (09:00→17:23)
[2019-07-05] MEDS: LISINOPRIL 5 MG TABLET PO SCH (09:00)
[2019-07-05] MEDS ORDERED: HYDROmorphone PCA 30 MG/30 ML IV PRN (09:00)
[2019-07-05] MEDS: SPIRONOLACTONE 25 MG TABLET PO SCH (09:00)
[2019-07-05] MEDS: FENTANYL PF 100 MCG/2ML IV PRN ×2 (09:23→09:55)
[2019-07-05 13:31] VITALS: BP 96/50
[2019-07-05] MEDS: AMPICILLIN/SULBACTAM 1,500 MG in SODIUM CHLORIDE 0.9% 50 ML IV SCH ×2 (15:29→20:27)
[2019-07-05] MEDS: POTASSIUM CHLORIDE 20 MEQ TAB.ER.PRT PO SCH (17:23)
[2019-07-05 17:40] VITALS: BP 110/62
[2019-07-05 20:18] VITALS: BP 116/70
[2019-07-05] MEDS: TRAZODONE 50MG TABLET PO PRN (20:28)
[2019-07-05] MEDS ORDERED: GUAIFENESIN 100 MG/5 ML, 10ML UDC ONE (20:33)
[2019-07-05] MEDS: GUAIFENESIN 100 MG/5 ML, 5ML UDC PO SCH (20:33)
[2019-07-06 00:57] VITALS: BP 113/75
[2019-07-06] MEDS: HEPARIN 5,000 UNITS/ML, 1ML SQ SCH ×3 (01:22→18:00)
[2019-07-06] MEDS: ALBUTEROL HFA 90 MCG/SPRAY INH SCH ×7 (01:23→23:00)
[2019-07-06] MEDS: AMPICILLIN/SULBACTAM 1,500 MG in SODIUM CHLORIDE 0.9% 50 ML IV SCH ×4 (02:39→20:29)
[2019-07-06 04:32] VITALS: BP 106/68
[2019-07-06 04:54] LABS: MEAN CORPUSCULAR HEMOGLOBIN 25.7 pg (27.0-34.8); MEAN CORPUSCULAR HGB CONC 32.4 g/dL (32.4-35.8); MEAN CORPUSCULAR VOLUME 79.5 fL (80-100); MEAN PLATELET VOLUME 7.8 fL (7.4-10.4); PLATELET COUNT 475 x10^3/uL (130-400); RED BLOOD COUNT 3.59 x10^6/uL (3.82-5.3); RED CELL DISTRIBUTION WIDTH 21.1 % (9.6-15.2)
[2019-07-06 05:09] LABS: ALBUMIN 1.7 g/dL (3.4-5.0); ANION GAP 7 mmol/L (5-15); CHLORIDE 103 mmol/L (98-107)
[2019-07-06 05:13] LABS: ALANINE AMINOTRANSFERASE 24 U/L (12-78); ALKALINE PHOSPHATASE 103 U/L (45-117); BILIRUBIN,TOTAL 0.3 mg/dL (0.2-1.0); CREATININE 0.84 mg/dL (0.55-1.02); TOTAL PROTEIN 6.9 g/dL (6.4-8.2)
[2019-07-06 05:29] LABS: BASOPHILS # (AUTO) 0.08 x10^3/uL (0-0.1); BASOPHILS % (AUTO) 1 % (0-1); EOSINOPHILS # (AUTO) 0.07 x10^3/uL (0-0.4); EOSINOPHILS % (AUTO) 1 % (1-7); LYMPHOCYTES # (AUTO) 0.86 x10^3/uL (1-3.4); LYMPHOCYTES % (AUTO) 6 % (22-44); MD MORPH REVIEW ONLY; MONOCYTES % (AUTO) 6 % (2-9); NEUTROPHILS # (AUTO) 12.38 x10^3/uL (1.8-6.8); NEUTROPHILS % (AUTO) 87 % (42-75)
[2019-07-06 05:30] LABS: ANISOCYTOSIS 1+; MICROCYTOSIS 1+; POLYCHROMASIA 1+
[2019-07-06 05:31] LABS: <PLATELET ESTIMATE> INCREASED; <PLT MORPHOLOGY> NORMAL PLT MORPH; TEAR DROPS 1+; TOXIC GRAN 1+
[2019-07-06] MEDS: CARVEDILOL 6.25 MG TABLET PO SCH ×2 (05:58→18:00)
[2019-07-06 06:40] VITALS: BP 110/70
[2019-07-06] MEDS: SPIRONOLACTONE 25 MG TABLET PO SCH (09:00)
[2019-07-06] MEDS: GUAIFENESIN 100 MG/5 ML, 5ML UDC PO SCH ×2 (09:07→20:28)
[2019-07-06] MEDS: FERROUS SULFATE 325 MG TABLET PO SCH ×2 (09:08→18:00)
[2019-07-06] MEDS: LISINOPRIL 5 MG TABLET PO SCH (09:08)
[2019-07-06] MEDS: THIAMINE 100MG TABLET PO SCH ×2 (09:08→20:29)
[2019-07-06] MEDS: SENNA/DOCUSATE TABLET PO SCH (09:08)
[2019-07-06] MEDS: POTASSIUM CHLORIDE 20 MEQ TAB.ER.PRT PO SCH ×2 (09:08→18:00)
[2019-07-06 14:25] VITALS: BP 105/68
[2019-07-06 18:01] VITALS: BP 118/48
[2019-07-06 20:21] VITALS: BP 105/69
[2019-07-06] MEDS ORDERED: GUAIFENESIN 100 MG/5 ML, 10ML UDC ONE (20:25)
[2019-07-06] MEDS: TRAZODONE 50MG TABLET PO PRN (20:34)
[2019-07-07] MEDS: BENZONATATE 100 MG CAPSULE PO PRN (01:41)
[2019-07-07] MEDS: HEPARIN 5,000 UNITS/ML, 1ML SQ SCH ×3 (01:41→17:46)
[2019-07-07] MEDS: AMPICILLIN/SULBACTAM 1,500 MG in SODIUM CHLORIDE 0.9% 50 ML IV SCH ×4 (01:59→20:32)
[2019-07-07 02:17] VITALS: BP 104/61
[2019-07-07] MEDS: ALBUTEROL HFA 90 MCG/SPRAY INH SCH ×6 (04:41→23:00)
[2019-07-07] MEDS: CARVEDILOL 6.25 MG TABLET PO SCH ×2 (05:19→17:47)
[2019-07-07 05:49] LABS: BASOPHILS # (AUTO) 0.08 x10^3/uL (0-0.1); BASOPHILS % (AUTO) 1 % (0-1); EOSINOPHILS # (AUTO) 0.11 x10^3/uL (0-0.4); EOSINOPHILS % (AUTO) 1 % (1-7); LYMPHOCYTES # (AUTO) 0.95 x10^3/uL (1-3.4); LYMPHOCYTES % (AUTO) 10 % (22-44); MD NO; MEAN CORPUSCULAR HEMOGLOBIN 25.7 pg (27.0-34.8); MEAN CORPUSCULAR HGB CONC 32.3 g/dL (32.4-35.8); MEAN CORPUSCULAR VOLUME 79.5 fL (80-100); MEAN PLATELET VOLUME 7.9 fL (7.4-10.4); MONOCYTES # (AUTO) 0.61 x10^3/uL (0.2-0.8); MONOCYTES % (AUTO) 6 % (2-9); NEUTROPHILS # (AUTO) 7.77 x10^3/uL (1.8-6.8); NEUTROPHILS % (AUTO) 82 % (42-75); PLATELET COUNT 442 x10^3/uL (130-400); RED BLOOD COUNT 3.36 x10^6/uL (3.82-5.3); RED CELL DISTRIBUTION WIDTH 20.2 % (9.6-15.2)
[2019-07-07] MEDS: FERROUS SULFATE 325 MG TABLET PO SCH ×2 (07:54→17:47)
[2019-07-07] MEDS: GUAIFENESIN 100 MG/5 ML, 5ML UDC PO SCH ×2 (07:54→20:33)
[2019-07-07] MEDS: POTASSIUM CHLORIDE 20 MEQ TAB.ER.PRT PO SCH ×2 (07:55→17:46)
[2019-07-07] MEDS: SENNA/DOCUSATE TABLET PO SCH (07:55)
[2019-07-07] MEDS: THIAMINE 100MG TABLET PO SCH ×2 (07:55→20:32)
[2019-07-07] MEDS: LISINOPRIL 5 MG TABLET PO SCH (07:56)
[2019-07-07] MEDS: SPIRONOLACTONE 25 MG TABLET PO SCH (07:56)
[2019-07-07 07:59] VITALS: BP 103/64
[2019-07-07 15:47] VITALS: BP 116/75
[2019-07-07 17:45] VITALS: BP 114/62
[2019-07-07 18:55] VITALS: BP 114/72
[2019-07-08 02:02] VITALS: BP 128/82
[2019-07-08] MEDS: AMPICILLIN/SULBACTAM 1,500 MG in SODIUM CHLORIDE 0.9% 50 ML IV SCH ×4 (02:32→20:38)
[2019-07-08] MEDS: HEPARIN 5,000 UNITS/ML, 1ML SQ SCH ×3 (02:32→20:37)
[2019-07-08] MEDS: ALBUTEROL HFA 90 MCG/SPRAY INH SCH ×6 (03:00→20:38)
[2019-07-08] MEDS: CARVEDILOL 6.25 MG TABLET PO SCH ×2 (05:30→17:39)
[2019-07-08 06:54] VITALS: BP 113/76
[2019-07-08] MEDS: SPIRONOLACTONE 25 MG TABLET PO SCH (09:00)
[2019-07-08] MEDS: SENNA/DOCUSATE TABLET PO SCH (09:00)
[2019-07-08] MEDS: THIAMINE 100MG TABLET PO SCH ×2 (09:00→20:37)
[2019-07-08] MEDS: GUAIFENESIN 100 MG/5 ML, 5ML UDC PO SCH ×2 (09:11→20:37)
[2019-07-08] MEDS: POTASSIUM CHLORIDE 20 MEQ TAB.ER.PRT PO SCH ×2 (09:12→17:00)
[2019-07-08] MEDS: LISINOPRIL 5 MG TABLET PO SCH (09:12)
[2019-07-08] MEDS: FERROUS SULFATE 325 MG TABLET PO SCH ×2 (09:12→17:00)
[2019-07-08 13:41] VITALS: BP 126/70
[2019-07-08] MEDS ORDERED: MORPHINE SULFATE 4 MG/ML, 1ML IVPush PRN (17:00)
[2019-07-08 18:54] VITALS: BP 122/68
[2019-07-08] MEDS: OXYcodone/APAP 5/325MG TABLET PO PRN (20:37)
[2019-07-08] MEDS: TRAZODONE 50MG TABLET PO PRN (22:10)
[2019-07-09 01:10] VITALS: BP 107/69
[2019-07-09] MEDS: AMPICILLIN/SULBACTAM 1,500 MG in SODIUM CHLORIDE 0.9% 50 ML IV SCH ×2 (02:30→02:57)
[2019-07-09] MEDS: OXYcodone/APAP 5/325MG TABLET PO PRN ×2 (02:59→09:02)
[2019-07-09] MEDS: ALBUTEROL HFA 90 MCG/SPRAY INH SCH ×3 (03:00→11:00)
[2019-07-09] MEDS ORDERED: AMOXICILLIN/CLAV 875-125MG TABLET PO SCH ×2 (03:30→21:00)
[2019-07-09] MEDS: HEPARIN 5,000 UNITS/ML, 1ML SQ SCH ×2 (04:03→11:27)
[2019-07-09] MEDS: CARVEDILOL 6.25 MG TABLET PO SCH (05:49)
[2019-07-09 07:28] VITALS: BP 125/75
[2019-07-09] MEDS: SENNA/DOCUSATE TABLET PO SCH (08:12)
[2019-07-09] MEDS: GUAIFENESIN 100 MG/5 ML, 5ML UDC PO SCH (08:12)
[2019-07-09] MEDS: LISINOPRIL 5 MG TABLET PO SCH (08:13)
[2019-07-09] MEDS: SPIRONOLACTONE 25 MG TABLET PO SCH (08:13)
[2019-07-09] MEDS: FERROUS SULFATE 325 MG TABLET PO SCH (08:13)
[2019-07-09] MEDS: POTASSIUM CHLORIDE 20 MEQ TAB.ER.PRT PO SCH (08:13)
[2019-07-09] MEDS: THIAMINE 100MG TABLET PO SCH (08:14)
[2019-07-09] MEDS ORDERED: MAGNESIUM OXIDE 400 MG TABLET PO SCH (09:00)
[2019-07-09] MEDS ORDERED: MAGN400T50 PO (11:29)
[2019-07-09] MEDS ORDERED: GUAI100L11 PO (11:29)
[2019-07-09] MEDS ORDERED: AMOX1TAB12 PO (11:29)
[2019-07-09] MEDS ORDERED: ACET325T26 PO (11:29)
[2019-07-09] MEDS ORDERED: TRAM50TA2 PO (12:36)
[2019-07-09 13:47] VITALS: BP 117/72
== END 2019-07-09 14:05 | disposition home or self-care (01) | DRG 853 ==
LOC: ED 16:29 → EDIP 18:13 → 3WST 20:57 → 3N 07-01 15:06 → 4NE 07-04 22:25
PROVIDERS: ADMIT Family Medicine; ATTEND Family Medicine
PROC: 0BNL4ZZ Release Left Lung, Percutaneous Endoscopic Approach (ICD-10-PCS; principal; 2019-07-05 08:00)
DX: A40.9 Streptococcal sepsis, unspecified (principal); J15.4 Pneumonia due to other streptococci; N17.0 Acute kidney failure with tubular necrosis; S22.39XA Fracture of one rib, unspecified side, initial encounter for closed fracture; E87.1 Hypo-osmolality and hyponatremia; I50.42 Chronic combined systolic (congestive) and diastolic (congestive) heart failure; I42.8 Other cardiomyopathies; I13.0 Hypertensive heart and chronic kidney disease with heart failure and stage 1 through stage 4 chronic kidney disease, or unspecified chronic kidney disease; N39.0 Urinary tract infection, site not specified; E86.0 Dehydration; E87.6 Hypokalemia; F10.10 Alcohol abuse, uncomplicated; F14.90 Cocaine use, unspecified, uncomplicated; I44.30 Unspecified atrioventricular block; I48.91 Unspecified atrial fibrillation; R00.0 Tachycardia, unspecified; N18.9 Chronic kidney disease, unspecified; S93.409A Sprain of unspecified ligament of unspecified ankle, initial encounter; Z59.0 Homelessness; I25.2 Old myocardial infarction; Z78.9 Other specified health status
CPT/HCPCS: 32555; 36415; 73610; 89050; 89060; 96361; 96365; 96366; 96372; 99291; J3490; 20606; 71045; 71260; 80048; 80053; 81001; 81025; 83605; 83735; 85025; 85651; 85810; 86140; 87015; 87040; 87070; 87075; 87086; 87102; 87116; 87147; 87181; 87205; 87206; 87324; 88112; 88305; 93005; 93306; C1729; G0378; J0456; J0696; J1100; J1170; J1644; J1885; J2250; J2405; J2704; J2710; J3010; J3370; Q0162; Q9967; J0295; J0330; J3480; J7030; J7050

== ENCOUNTER 2020-07-04 14:58 | Emergency (ER) | payer MEDICAID ==
[~2020-07-04] VITALS: Ht 175.3 cm; Wt 70.0 kg
[~2020-07-04 14:58] MED LIST changes: +ACET325T26 PO; +AMOX1TAB12 PO; +FERR324T5 PO; +GUAI100L11 PO; +MAGN400T50 PO; +NALT50TA PO; +POTA20TA14 PO; +SPIR25TA5 PO; +TRAM50TA2 PO
--- NOTE | 2020-07-04 15:15 | NUR ---
THIS IS A 54 YO F BIB EMS FROM [facility] IN [place] OFF OF W/ C/O GLF R/T ETOH. PT DENIES LOC, HITTING HEAD. PT REPORTS DRANK 1/2 [place] TODAY. PER EMS PT NEEDED ASSISTANCE W/ AMBULATING. PT RESTING ON GURNEY W/ CALL LIGHT IN REACH AND SIDE RAILS UPX2. RESP EVEN AND UNLABORED, NADN. AWAITING ED EVAL.
--- NOTE | 2020-07-04 16:00 | NUR ---
PT SLEEPING ON GURNEY, RESP EVEN AND UNLABORED, NADN.
--- NOTE | 2020-07-04 16:55 | NUR ---
PT AMBULATORY W/ A STEADY GAIT TO DC DESK. PROVIDED W/ BUS PASS. PT STATES DOES NOT WANT TO STAY FOR ERP REEVAL OR DC PPWK. PT APOLGETIC STATING "I'M SORRY FOR WASTING YOUR TIME". PT AWAKE AND ALERT. RESP EVEN AND UNLABORED, NADN.
[2020-07-04 16:56] VITALS: BP 101/59
== END 2020-07-04 17:02 | disposition home or self-care (01) ==
LOC: ED 16:56
DX: F10.220 Alcohol dependence with intoxication, uncomplicated (principal); I11.0 Hypertensive heart disease with heart failure; I50.9 Heart failure, unspecified; I25.2 Old myocardial infarction; I48.91 Unspecified atrial fibrillation; Y90.0 Blood alcohol level of less than 20 mg/100 ml
CPT/HCPCS: 99283